=== PATIENT | female | born 1965 | race Caucasian/White ===

== ENCOUNTER → 2017-10-01 | Outpatient (CLI) | payer BC ==
[2015-02-20 23:18] VITALS: BP 130/83
--- NOTE | 2017-10-03 11:35 | MG ---
HISTORY: SCREENING Comparison: Previous mammograms from 09/24/2016 and 09/18/2015 FINDINGS: Bilateral CC and MLO projections of the right and left breast were obtained. Scattered fibroglandula r tissue is seen to be present. No significant architectural distortion, mass or clustered microcalc ifications can be observed to suggest malignancy. No skin thickening or nipple retraction is appreci ated. No pathological lymphadenopathy can be identified. Benign-appearing calcifications scattered throughout the right and left breasts are observed. IMPRESSION: NO RADIOGRAPHIC EVIDENCE OF MALIGNANCY. ACR CATEGORY: 2 - benign findings. FOLLOW-UP EXAM 1 YEAR. Diagnostic CAD was utilized and reviewed. * 0 (ZERO) - ASSESSMENT INCOMPLETE; ADDITIONAL IMAGING IS NEEDED. * 1/1 (ONE) - NEGATIVE. * 2/II (TWO) - BENIGN FINDINGS. * 3/III (THREE) - PROBABLY BENIGN FINDING; SHORT INTERVAL FOLLOW-UP SUGGESTED. * 4/IV (FOUR) - SUSPICIOUS ABNORMALITY; BIOPSY SHOULD BE CONSIDERED. * 5/V - HIGHLY SUSPICIOUS OF MALIGNANCY; BIOPSY SHOULD BE PERFORMED. A NEGATIVE X-RAY REPORT SHOULD NOT DELAY BIOPSY IF A DOMINANT OR CLINICALLY SUSPICIOUS MASS IS PRESENT; 4 TO 8 PERCENT OF CANCERS ARE NOT IDENTIFIED BY X-RAY. A NEGA TIVE REPORT MAY REINFORCE THE CLINICAL IMPRESSION. ADENOSIS AND DENSE BREASTS MAY OBSCURE AN UNDERLY ING NEOPLASM. Reported By:
== END ==
LOC: RAD 13:10
PROVIDERS: ATTEND Nurse Practitioner Family
DX: Z12.31 Encounter for screening mammogram for malignant neoplasm of breast (principal)
CPT/HCPCS: 77067

== ENCOUNTER 2017-11-18 23:13 | Emergency (ER) | payer BC ==
[2017-11-18 23:26] VITALS: BMI 22.3
[2017-11-18 23:43] LABS: BASOPHILS # (AUTO) 0.1 X10^3/uL (0.0-0.1); EOSINOPHILS # (AUTO) 0.1 x10^3/uL (0.0-0.2); EOSINOPHILS % (AUTO) 1.2 % (0.9-2.9); HEMATOCRIT 36.8 % (36.0-47.0); HEMOGLOBIN 12.5 g/dL (12.0-16.0); LYMPHOCYTES # (AUTO) 1.2 X10^3/uL (1.3-2.9); LYMPHOCYTES % (AUTO) 15.6 % (21.0-51.0); MEAN CORPUSCULAR HEMOGLOBIN 30.9 pg (27.0-34.0); MEAN CORPUSCULAR HGB CONC 34.1 g/dL (33.0-35.0); MEAN CORPUSCULAR VOLUME 90.6 fL (80.0-100.0); MEAN PLATELET VOLUME 7.2 fL (7.4-11.0); MONOCYTES # (AUTO) 0.6 x10^3/uL (0.3-0.8); MONOCYTES % (AUTO) 7.4 % (0.0-13.0); NEUTROPHILS # (AUTO) 5.9 x10^3/uL (2.2-4.8); NEUTROPHILS % (AUTO) 74.8 % (42.0-75.0); PLATELET COUNT 301 X10^3/uL (150.0-450.0); RED BLOOD COUNT 4.06 X10^6/uL (3.5-5.4); RED CELL DISTRIBUTION WIDTH 13.1 % (11.6-16.5); WHITE BLOOD COUNT 7.9 X10^3/uL (3.6-10.0)
--- NOTE | 2017-11-18 23:52 | RAD ---
Chest, AP portable Indication: Chest pain Comparison: None Findings: The cardiac silhouette is unremarkable. The lungs are clear without focal infiltrate or ple ural effusion. Impression: No acute chest process. Reported By:
--- NOTE | 2017-11-18 23:53 | DR.GENAD ---
HPI - PCP Primary Care Physician: aga - HPI Comment HPI Comment: EPISODE OF UPPER CHEST PRESSURE ASSOCIATED WITH NAUSEA AND DIAPHORESIS. CURRENTLY, PATIENT HAVE SYMPTOM BUT IS MILD. IT STARTED 5 HRS AGO. PATIENT HAVE HISTORY OF TACHY ARTHYTHMIA AND TAKE METOPROLOL. HR AND BP NORMAL IN ED. - Complaint/Symptoms Chief Complaint Doctors Comments: CHEST PAIN TONIGHT. Chief Complaint:: pt states" at about 6 tonight i got nauseaed and had a pain in my chest when i sit down. I don't know what's wrong but my family made me come" - Nurses notes reviewed Nurses Notes Review: Yes - Source History Provided: Patient - Mode of Arrival Mode of Arrival: Ambulatory - Timing Onset of Chief Complaint: 11/18/17 Came on: Suddenly - Duration Duration: Constant Duration: Hours - Severity Severity: Moderate PMH - PMH Past Medical History: Yes Past Medical History: Depression, GERD, Hypothyroidism, Ventricular Tachycardia Past Surgical History: Yes Surgical History: Hysterectomy - Family History History of Family Medical Conditions: Yes Family Medical History: [place], Coronary Artery Disease - Social History Do you use any recreational Drugs:: No Lives With: Family Lives Where: Home - infectious screening In the last 2 months have you had wt loss of >10#?: NO Have you had fever, night sweats or hemotysis?: No Have you traveled outside the country in the last 6 months?: No Isolation: Standard ROS - Review of Systems Constitutional: Diaphoresis, Weakness, Fatigue. negative: Chills, Fever Eyes: No Symptoms Reported. negative: Eye Pain, Discharge ENTM: No Symptoms Reported. negative: Ear Pain, Nose Discharge, Nose Congestion , Throat Pain Respiratoy: No Symptoms Reported. negative: Productive Cough, Non-Productive Cough, Short of Breath, Wheezing, Hemoptysis Cardiovascular: No Symptoms Reported Gastrointestinal/Abdominal: Nausea Genitourinary: No Symptoms Reported. negative: Dysuria, Frequency, Hematuria Neurological: Weakness, Dizziness. negative: Headache Musculoskeletal: No Symptoms Reported Integumentary: No Symptoms Reported Hematologic/Lymphatic: No Symptoms Reported Endocrine: No Symptoms Reported All Other Systems: Reviewed and Negative PE - Vital Signs Vitals: Temperature 97.6 F Pulse Rate [Left] 76 Pulse Rate [Standing] 78 Pulse Rate [Sitting] 85 Pulse Rate [Lying] 82 Pulse Rate 86 Respiratory Rate 18 Blood Pressure [Right Arm] 114/60 Blood Pressure [Standing] 110/63 Blood Pressure [Sitting] 108/57 Blood Pressure [Lying] 114/59 Blood Pressure 130/81 O2 Sat by Pulse Oximetry 100 - General Limitations: No Limitations General Appearance: Alert - Head Head Exam: Normal Inspection - Eyes Eye exam: Normal Appearance - ENT ENT Exam: Normal External Ear Exam External Ear Exam: Normal External Inspection TM/Canal Exam: Bilateral Normal Nose Exam: Normal Nose Exam Mouth Exam: Normal Inspection Throat Exam: Normal Inspection - Neck Neck Exam: Normal Inspection - Chest Chest Inspection: Symmetric Chest Wall Rise - Respiratory Respiratory Exam: Normal Lung Sounds Bilat Respiratory Exam: Bilateral Clear to Auscultation - Cardiovascular Cardiovascular Exam: Regular Rate, Normal Rhythm, Normal Heart Sounds - Abdominal Exam Abdominal Exam: Normal Bowel Sounds, Soft. negative: Tenderness - Extremities Extremities Exam: Normal Inspection - Back Back Exam: Normal Inspection - Neurologic Neurological Exam: Alert, Oriented X3 - Psychiatric Psychiatric Exam: Normal Affect, Normal Mood - Skin Skin Exam: Erythema MDM - Additional Information Additional Information Obtained From: Family - Differential Diagnosis Differential Diagnosis: CHEST PAIN, NEAR SYNCOPE, [place], PE, DEHYDRATION, ELECTROLYTE IMBALANCE. Course - Treatment Treatment: SEE ORDERS. PATIENT OFFER TO BE OBSERVE IN HOSPITAL. SHE WANT TO GO HOME AND SEE PCP IN AM. - Education/Counseling Education/Counseling: Patient, Family, Education Educated On: Diagnosis ROR - Labs Reviewed Laboratory Results Reviewed?: Yes Result Diagrams: 11/18/17 23:35 11/18/17 23:35 Laboratory: WBC 7.9 X10^3/uL (3.6-10.0) 11/18/17 23:35 RBC 4.06 X10^6/uL (3.5-5.4) 11/18/17 23:35 Hgb 12.5 g/dL (12.0-16.0) 11/18/17 23:35 Hct 36.8 % (36.0-47.0) 11/18/17 23:35 MCV 90.6 fL (80.0-100.0) 11/18/17 23:35 MCH 30.9 pg (27.0-34.0) 11/18/17 23:35 MCHC 34.1 g/dL (33.0-35.0) 11/18/17 23:35 RDW 13.1 % (11.6-16.5) 11/18/17 23:35 Plt Count 301 X10^3/uL (150.0-450.0) 11/18/17 23:35 MPV 7.2 fL (7.4-11.0) L 11/18/17 23:35 Neut % (Auto) 74.8 % (42.0-75.0) 11/18/17 23:35 Lymph % (Auto) 15.6 % (21.0-51.0) L 11/18/17 23:35 [place]pine % (Auto) 7.4 % (0.0-13.0) 11/18/17 23:35 Eos % (Auto) 1.2 % (0.9-2.9) 11/18/17 23:35 Baso % (Auto) 1.0 % (0.2-1.0) 11/18/17 23:35 Neut # (Auto) 5.9 x10^3/uL (2.2-4.8) H 11/18/17 23:35 Lymph # (Auto) 1.2 X10^3/uL (1.3-2.9) L 11/18/17 23:35 Alpine # (Auto) 0.6 x10^3/uL (0.3-0.8) 11/18/17 23:35 Eos # (Auto) 0.1 x10^3/uL (0.0-0.2) 11/18/17 23:35 Baso # (Auto) 0.1 X10^3/uL (0.0-0.1) 11/18/17 23:35 Absolute Nucleated RBC 0.0 /100WBC 11/18/17 23:35 INR Target Range - 11/18/17 23:35 INR 0.91 (0.8-1.3) 11/18/17 23:35 APTT 32.4 SECONDS (22.9-36.5) 11/18/17 23:35 PTT Comment - 11/18/17 23:35 Sodium 138 mmol/L (136-145) 11/18/17 23:35 Corrected Sodium TNP 11/18/17 23:35 Potassium 4.5 mmol/L (3.5-5.1) 11/18/17 23:35 Chloride 103 mmol/L (98-107) 11/18/17 23:35 Carbon Dioxide 28.7 mmol/L (21-32) 11/18/17 23:35 BUN 15 mg/dL (7-18) 11/18/17 23:35 Creatinine 0.91 mg/dL (0.55-1.02) 11/18/17 23:35 Est GFR (MDRD) Af Amer > 60 (>60) 11/18/17 23:35 Est GFR (MDRD) Non-Af > 60 (>60) 11/18/17 23:35 Glucose 105 mg/dL (65-99) H 11/18/17 23:35 Calcium 8.3 mg/dL (8.5-10.1) L 11/18/17 23:35 Corrected Calcium TNP 11/18/17 23:35 Magnesium 1.9 mg/dL (1.7-2.9) 11/18/17 23:35 Total Bilirubin 0.20 mg/dL (0.2-1.0) 11/18/17 23:35 AST 16 Units/L (15-37) 11/18/17 23:35 ALT 21 Units/L (12-78) 11/18/17 23:35 Alkaline Phosphatase 69 Units/L (46-116) 11/18/17 23:35 Creatine Kinase 102 Units/L (26-192) 11/18/17 23:35 CK-MB (CK-2) 1.2 ng/mL (0-4.0) 11/18/17 23:35 CK/CKMB % Calc 1.2 % (<4) 11/18/17 23:35 Troponin I < 0.02 ng/mL (0-1.5) 11/18/17 23:35 Total Protein 7.2 g/dL (6.4-8.2) 11/18/17 23:35 Albumin 3.6 g/dL (3.4-5.0) 11/18/17 23:35 Globulin 3.6 g/dL (2.5-4.5) 11/18/17 23:35 Albumin/Globulin Ratio 1.0 Ratio (1.1-2.1) L 11/18/17 23:35 - XRAY XRAY Interpreted by: Radiologist XRAY Findings: REPORT DISCUSS WITH PATIENT AND FAMILY. - EKG Rhythm: NSR (EKG NOTED) - Diagnosis Discharge Problem: Near syncope, Dizziness Chest pain Qualifiers: Chest pain type: precordial pain Qualified Code(s): R07.2 - Precordial pain - Discharge Plan Disposition: 01 HOME, SELF-CARE Condition: Stable - Follow ups/Referrals Follow ups/Referrals: LETTY PERRY [Primary Care Provider] - 11/19/17 - Instructions Instructions: Near-Syncope, [id number], Dizziness, [id number], Chest Pain Observation Additional Instructions: RETURN TO ED IF WORSE.
[2017-11-19 00:03] LABS: BLOOD UREA NITROGEN 15 mg/dL (7-18); CALCIUM 8.3 mg/dL (8.5-10.1); CARBON DIOXIDE 28.7 mmol/L (21-32); CHLORIDE 103 mmol/L (98-107); CREATININE 0.91 mg/dL (0.55-1.02); SODIUM 138 mmol/L (136-145); TROPONIN I < 0.02 ng/mL (0-1.5); eGFR BLACK RACES > 60 (>60); eGFR NON BLACK RACES > 60 (>60)
[2017-11-19 00:07] LABS: ALANINE AMINOTRANSFERASE 21 Units/L (12-78); ALBUMIN 3.6 g/dL (3.4-5.0); ALKALINE PHOSPHATASE 69 Units/L (46-116); ASPARTATE AMINO TRANSFERASE 16 Units/L (15-37); CKMB % 1.2 % (<4); CREATINE KINASE 102 Units/L (26-192); CREATINE KINASE MB 1.2 ng/mL (0-4.0); MAGNESIUM 1.9 mg/dL (1.7-2.9); TOTAL PROTEIN 7.2 g/dL (6.4-8.2)
[2017-11-19 01:11] VITALS: BP 114/60
== END 2017-11-19 01:11 | disposition home or self-care (01) ==
LOC: ER 23:18
DX: R07.2 Precordial pain (principal); R55 Syncope and collapse; R42 Dizziness and giddiness; R94.31 Abnormal electrocardiogram [ECG] [EKG]
CPT/HCPCS: 36415; 71045; 80053; 82550; 82553; 83735; 84484; 85025; 85610; 85730; 93005; 93010; 99283; 99284